=== PATIENT | female | born 1965 ===

== ENCOUNTER 2017-01-26 12:16 | Observation (INO) | payer BC, MEDICAID ==
[2017-01-26 12:28] VITALS: O2SAT 100
[2017-01-26] MEDS ORDERED: Sodium Chloride 0.9% 1,000 ML IV ONE (12:49)
[2017-01-26] MEDS ORDERED: Sodium Chloride 0.9% 250 ML IV ONE (12:58)
--- NOTE | 2017-01-26 13:08 | C.PDOC ---
History Of Present Illness 51 y/o female presents to ED with complaint of feeling a "lump" to her upper abdomen 4 days ago. Patient now reports pain with eating and cough. Also, patient reports associated nausea and vomiting, with diarrhea onset last night. Otherwise, patient denies fever, chills, urinary symptoms, or other complaints. Time Seen by Provider: 01/26/17 12:42 Chief Complaint (Nursing): Abdominal Pain History Per: Patient History/Exam Limitations: no limitations Onset/Duration Of Symptoms: Days Current Symptoms Are (Timing): Still Present Location Of Pain/Discomfort: Other (upper abdomen) Radiation Of Pain To:: None Quality Of Discomfort: "Pain" Associated Symptoms: Nausea, Vomiting, Diarrhea. denies: Fever, Chills, Urinary Symptoms Recent travel outside of the [place]: No Abnormal Vaginal Bleeding: No Past Medical History Reviewed: Historical Data, Nursing Documentation, Vital Signs Vital Signs: Last Vital Signs Temp 99.0 F 01/26/17 14:03 Pulse 56 L 01/26/17 14:03 Resp 20 01/26/17 14:03 BP 132/77 01/26/17 14:03 Pulse Ox 100 01/26/17 15:11 - Medical History PMH: Gall Bladder Disease, Pneumonia Surgical History: Cholecystectomy, Tonsillectomy Family History: States: Unknown Family Hx - Social History Hx Alcohol Use: No Hx Substance Use: No - Immunization History Hx Tetanus Toxoid Vaccination: No Hx Influenza Vaccination: No Hx Pneumococcal Vaccination: No Review Of Systems Except As Marked, All Systems Reviewed And Found Negative. Constitutional: Negative for: Fever, Chills Cardiovascular: Negative for: Chest Pain Respiratory: Negative for: Cough, Shortness of Breath Gastrointestinal: Positive for: Nausea, Vomiting, Abdominal Pain, Diarrhea Genitourinary: Negative for: Dysuria, Hematuria, Pelvic Pain Skin: Negative for: Rash Physical Exam - Physical Exam Appears: Non-toxic, No Acute Distress Skin: Warm, Dry Head: Atraumatic, Normacephalic Oral Mucosa: Moist Chest: Symmetrical Cardiovascular: Rhythm Regular, No Murmur Respiratory: Normal Breath Sounds, No Rales, No Rhonchi, No Wheezing Gastrointestinal/Abdominal: Soft, Tenderness (epigastric, RUQ), No Guarding, No Rebound, Hernia (reducible, mildly tender, to upper abdomen), Other ((-) Gutierrez' s) Back: No CVA Tenderness Extremity: Normal ROM, Capillary Refill (< 2 sec. ) Neurological/Psych: Oriented x3, Normal Speech, Normal Cognition ED Course And Treatment - Laboratory Results Result Diagrams: 01/26/17 13:05 01/26/17 13:05 O2 Sat by Pulse Oximetry: 100 (RA) Pulse Ox Interpretation: Normal - CT Scan/US CT Abdomen/Pelvis Other Rad Studies (CT/US): Read By Radiologist, Radiology Report Reviewed CT/US Interpretation: Accession No. : [id number]. Patient Name / ID : CORETTA STONE / [id number]. Exam Date : 01/26/2017 14:21:42 ( Approved ). Study Comment : Sex / Age : F / 51Y. Creator : richy cooley. Dictator : Kathrine Pool MD. Catalyst Concentration Operator : Gis Technician : Kathrine Pool MD. Approver2 : Report Date : 01/26/2017 14:50:17. My Comment : . PROCEDURE: CT Abdomen and Pelvis with contrast. HISTORY: epigastric and RUQ abd pain. COMPARISON: None available. TECHNIQUE: Contrast dose: 100 mL Visipaque. Radiation dose: Total exam DLP = not available. This CT exam was performed using one or more of the following dose reduction techniques: Automated exposure control, adjustment of the mA and/or kV according to patient size, and/or use of iterative reconstruction technique. FINDINGS: LOWER THORAX : Minimal left basilar atelectasis. No visible pleural effusion or pneumothorax. Small hiatal hernia/distal esophageal wall thickening. LIVER: Borderline hepatomegaly. GALLBLADDER AND BILE DUCTS: Cholecystectomy. PANCREAS: Unremarkable. SPLEEN: Unremarkable. ADRENALS: Unremarkable. KIDNEYS AND URETERS: 9 mm left upper pole renal hypodensity, statistically likely a cyst. Kidneys enhance symmetrically. No hydronephrosis. No obstructing calculus. VASCULATURE: No aortic aneurysm. BOWEL: Stomach is nondistended. Lack of oral contrast limits evaluation for bowel pathology. Bowel loops appear within normal limits of caliber without evidence of obstruction. APPENDIX: The appendix appears within normal limits of caliber. No secondary signs of acute appendicitis. PERITONEUM: No significant free fluid. No definite free air. LYMPH NODES: No bulky adenopathy evident. BLADDER: Unremarkable. REPRODUCTIVE: The uterus is present. BONES: Degenerative changes of the spine. OTHER FINDINGS: None. IMPRESSION: Cholecystectomy. Borderline hepatomegaly. Small hiatal hernia/distal wall thickening. Additional findings as above. Medical Decision Making Medical Decision Making: Plan: * CT abdomen/pelvis * Labs * Pepcid, Zofran, Toradol, IVFs * Reassess Progress: obs ED OBSERVATION Discharge: Yes Date of observation admission: 01/26/17 Time of observation admission: 12:50 - Observation admission statement Patient is being placed in observation because:: Abdominal pain and vomiting - Goals of Observation Goals of observation are:: IV hydration, labs and CT - Progress Note Progress Note: 01/26/17 14:12 Labs reviewed with no acute findings. 01/26/17 15:11 CT shows small hiatal hernia Patient remained well afebrile and in no distress. She reports feeling better upon reevaluation. Discuss results with patient and provide copy of results. Patient feels comfortable going home and will be discharged. Patient given follow up instructions. Instructed to return to ER if symptoms worsen or new symptoms arise. Disposition Counseled Patient/Family Regarding: Studies Performed, Diagnosis, Need For Followup - Disposition Disposition: HOME/ ROUTINE Disposition Time: 15:11 Condition: IMPROVED - POA Present On Arrival: None - Clinical Impression Clinical Impression: Vomiting, Hiatal hernia - PA / MANAGER GLOBAL / Resident Statement MD/DO has reviewed & agrees with the documentation as recorded. - Scribe Statement The provider has reviewed the documentation as recorded by the Ceferino Villasenor Provider Scribe Attestation: All medical record entries made by the Ceferino were at my direction and personally dictated by me. I have reviewed the chart and agree that the record accurately reflects my personal performance of the history, physical exam, medical decision making, and the department course for this patient. I have also personally directed, reviewed, and agree with the discharge instructions and disposition.
[2017-01-26 13:19] LABS: BASO % 0.4 % (0.0-2.0); EOS # 0.2 K/uL (0.0-0.7); EOS % 3.5 % (0.0-4.0); HEMATOCRIT 38.5 % (34.0-47.0); LYMPH # 1.4 K/uL (1.0-4.3); LYMPH % 32.1 % (20.0-40.0); MEAN CELL VOLUME 93.1 fL (81.0-99.0); MEAN CORPUSCULAR HEMOGLOBIN 31.3 pg (27.0-31.0); MEAN CORPUSCULAR HGB CONC 33.6 g/dL (33.0-37.0); MEAN PLATELET VOLUME 9.7 fL (7.2-11.7); MONO # 0.2 K/uL (0.0-0.8); MONO % 5.4 % (0.0-10.0); RED CELL DISTRIBUTION WIDTH 13.4 % (11.5-14.5); WHITE BLOOD COUNT 4.4 K/uL (4.8-10.8)
[2017-01-26 13:24] LABS: RBC URINE < 1 /hpf (0-3); URINE BILIRUBIN NEGATIVE (NEGATIVE); URINE BLOOD NEGATIVE (NEGATIVE); URINE COLOR Yellow (YELLOW); URINE GLUCOSE (UA) NORMAL (Normal); URINE KETONE NEGATIVE (NEGATIVE); URINE LEUKOCYTE ESTERASE NEG Leu/uL (Negative); URINE PROTEIN NEGATIVE (NEGATIVE); URINE UROBILINOGEN NORMAL mg/dL (0.2-1.0); WBC URINE < 1 /hpf (0-5)
[2017-01-26 13:29] LABS: CHLORIDE 100 mmol/L (98-107); SODIUM 138 mmol/L (132-148)
[2017-01-26 13:30] LABS: POTASSIUM 3.6 mmol/L (3.6-5.2)
[2017-01-26 13:32] LABS: ALB/GLOB RATIO 1.7 (1.0-2.1); ALKALINE PHOSPHATASE 54 U/L (38-126); ALT/SGPT 33 U/L (9-52); AST/SGOT 24 U/L (14-36); BILIRUBIN,TOTAL 1.7 mg/dL (0.2-1.3); BLOOD UREA NITROGEN 12 mg/dL (7-17); CALCIUM 8.8 mg/dl (8.6-10.4); CARBON DIOXIDE 30 mmol/L (22-30); GFR AFRICAN-AMERICAN > 60; GLUCOSE,RANDOM 94 mg/dL (65-105); TOTAL PROTEIN 6.7 g/dL (6.3-8.3)
[2017-01-26] MEDS ORDERED: Iodixanol 320 MG/ML 100 ML BOTTLE IV ONE (13:39)
[2017-01-26 14:03] VITALS: BP 132/77; PULSE 56; RESP 20; TEMP 99
--- NOTE | 2017-01-26 15:04 | CT ---
PROCEDURE: CT Abdomen and Pelvis with contrast HISTORY: epigastric and RUQ abd pain COMPARISON: None available. TECHNIQUE: Contrast dose: 100 mL Visipaque Radiation dose: Total exam DLP = not available. This CT exam was performed using one or more of the following dose reduction techniques: Automated exposure control, adjustment of the mA and/or kV according to patient size, and/or use of iterative reconstruction technique. FINDINGS: LOWER THORAX: Minimal left basilar atelectasis. No visible pleural effusion or pneumothorax. Small hiatal hernia/distal esophageal wall thickening. LIVER: Borderline hepatomegaly. GALLBLADDER AND BILE DUCTS: Cholecystectomy. PANCREAS: Unremarkable. SPLEEN: Unremarkable. ADRENALS: Unremarkable. KIDNEYS AND URETERS: 9 mm left upper pole renal hypodensity, statistically likely a cyst. Kidneys enhance symmetrically. No hydronephrosis. No obstructing calculus. VASCULATURE: No aortic aneurysm. BOWEL: Stomach is nondistended. Lack of oral contrast limits evaluation for bowel pathology. Bowel loops appear within normal limits of caliber without evidence of obstruction. APPENDIX: The appendix appears within normal limits of caliber. No secondary signs of acute appendicitis. PERITONEUM: No significant free fluid. No definite free air. LYMPH NODES: No bulky adenopathy evident. BLADDER: Unremarkable. REPRODUCTIVE: The uterus is present. BONES: Degenerative changes of the spine. OTHER FINDINGS: None. IMPRESSION: Cholecystectomy. Borderline hepatomegaly. Small hiatal hernia/distal wall thickening. Additional findings as above.
== END 2017-01-26 15:11 | disposition home or self-care (01) ==
LOC: C.ER 12:16 → C.9OBSV 12:50
PROVIDERS: ADMIT Emergency Medicine; ATTEND Emergency Medicine
DX: K44.9 Diaphragmatic hernia without obstruction or gangrene (principal); R11.10 Vomiting, unspecified
CPT/HCPCS: 74177; 80053; 81001; 83690; 84703; 85025; 96360; 96374; G0378; J1885; J2405; J7040; Q9967

== ENCOUNTER 2017-02-17 08:27 | Day surgery (SDC) | payer BC ==
[2017-02-17 08:49] VITALS: BMI 34.3
[2017-02-17 09:21] VITALS: O2SAT 100
[2017-02-17] MEDS ORDERED: Propofol 10 mg/ml Inj (20 ML) ONE ×2 (10:55→11:10)
[2017-02-17] MEDS ORDERED: Lidocaine Hydrochloride 5 ML INJ ONE (10:55)
[2017-02-17 12:11] VITALS: TEMP 98.4
[2017-02-17 12:13] VITALS: RESP 18
[2017-02-17 14:14] VITALS: BP 136/59; PULSE 60
== END 2017-02-17 12:58 | disposition hospice, home (50) ==
LOC: C.ENDO 08:27
PROVIDERS: ATTEND Internal Medicine Gastroenterology
DX: K29.50 Unspecified chronic gastritis without bleeding (principal); B96.81 Helicobacter pylori [H. pylori] as the cause of diseases classified elsewhere; K52.9 Noninfective gastroenteritis and colitis, unspecified; K64.8 Other hemorrhoids
CPT/HCPCS: 43239; 45378; 84703; 88305; J2704